=== PATIENT | male | born 1935 | race Caucasian/White ===

== ENCOUNTER → 2025-01-19 13:03 | Outpatient (REF) | payer MEDICARE, SELFPAY | LOC: HWRAD 13:03 | PROVIDERS: ATTENDING PHYSICIAN Family Medicine | DX: H53.8 Other visual disturbances (principal); Z91.81 History of falling; R26.2 Difficulty in walking, not elsewhere classified | CPT/HCPCS: 70450 ==

== ENCOUNTER 2025-04-04 18:33 | Inpatient (IN) | payer MEDICARE, SELFPAY ==
[2025-04-04 12:55] VITALS: BP 141/96
--- NOTE | 2025-04-04 13:49 | ED.GENMED ---
History of Present Illness
<Vijaya Patterson MD, Resident - Last Filed: 04/04/25 15:27>
General
Chief Complaint: Change in Mental Status
Source: spouse and family
Exam Limitations: none
Time Seen by Provider: 04/04/25 13:09
Nursing documentation reviewed up to this point in time: agreed with
History of Present Illness
History of Present Illness:
89yo M with a hx of hypothyroid, PAH, arrhythmia (pacemaker), T2DM, & recently diagnosed vascular dementia who presents from home after days without sleep & with severe psychomotor agitation.
Hx per daughter & at bedside - pt lives at independent living facility with , where he was recently discharged from a stay at acute rehab following a monthlong hospitalization at [facility]. The hospitalization was precipitated by an episode
of syncope and pt appearing in coma-like state. He was declining for years prior with episodes of syncope, autonomic dysfunction/frequent urination/orthostatic hypotension, confusion, dementia, motor weakness. Since the hospitalization, the pt has
had a precipitous decline in mental status. He has been unable to sleep at night, staying up thrashing & screaming. He has become violent, striking staff & his . Family feels that he can no longer be managed at home.
He was started on remeron while at rehab with little to no improvement in sleep. They tried increasing the dose, which did not help. About 1 week ago, pt was seen by a neurologist at [facility] (Dr. Nereyda Juarez), who dx him with vascular dementia. She
prescribed him ativan for sleep. Per family, he has not had improved sleep with ativan but then seems extremely somnolent in the morning the next day. MRI of brain demonstrated diffuse changes consistent with ischemic small vessel dz but without
discrete foci of old infarcts. Neuro workup last week included CBC (WBC not elevated), UA (negative for UTI), vitamin panel (all wnl), TSH (wnl, pt on levothyroxine). Family denies any recent new cough or witness aspiration/choking events. Notice
that he burps a lot after eating.
Past History
<Vijaya Patterson MD, Resident - Last Filed: 04/04/25 15:27>
Past History
ED Past Medical History: NIDDM, Hypothyroidism and Psychiatric (vascular dementia; PAH )
ED Past Surgical History: Orthopedic (C2 fusion)
Patient has exhibited threatening behavior?: No
Social History
Living: assisted living
Review of Systems
<Vijaya Patterson MD, Resident - Last Filed: 04/04/25 15:27>
Review of Systems
Unable to obtain full review of systems at this time due to: dementia
Other source history: family
All Other Systems: ROS reviewed and negative except as documented in HPI and ROS
Constitutional: Reports sleep disturbance
EENT: Reports no symptoms
Respiratory: Reports no symptoms
Cardiac: Reports no symptoms
ABD/GI: Reports no symptoms
: Reports frequency
Musculoskeletal: Reports no symptoms
Skin: Reports no symptoms
Neurological: Reports other (psychosis, no sleep, screaming/psychomotor agitation at night, confusion, syncopal episodes )
Endocrine: Reports no symptoms
Psychiatric: Reports other (dementia )
Phy Exam
<Vijaya Patterson MD, Resident - Last Filed: 04/04/25 15:27>
General Physical Exam
General Presentation: no apparent distress (sleeping )
General age: appears stated age
General Skin: warm and dry
General Habitus: elderly
General Mental: other (somnolent, asleep, not easily roused )
General Hydration: appears well hydrated
Cardiovascular Exam
Cardiovascular Exam: regular rate/rhythm and no edema
Heart Sounds: normal
Pulmonary Exam
Pulmonary Exam: lungs clear and no respiratory distress
Gastrointestinal Exam
Gastrointestinal Exam: non tender, soft and non distended
Neurological Exam
Neurological Exam: other (not easily rousable)
Musculoskeletal Exam
Musculoskeletal Exam: no edema
Skin Exam
Skin Exam: normal color and warm/dry
Course
<Vijaya Patterson MD, Resident - Last Filed: 04/04/25 15:27>
Orders/Labs/Results
Orders:
Orders
04/04/25
Electrocardiogram (*1) Stat
Comment: DONE EMR
04/04/25 13:22
Case Management Consult ONCE
Case Management Consult: VN/Home Care
04/04/25 14:45
Case Management Consult ONCE
Case Management Consult: Hospice
Hospice: Evaluation and treat
04/04/25 15:30
Electrocardiogram (*1) Urgent
Reason for Study: QTc Monitoring
Olanzapine [Zyprexa] 5 mg IM NOW STA
04/04/25 15:43
Ammonia Urgent
Complete Blood Count/With Diff Urgent
Comprehensive Metabolic Panel Urgent
04/04/25 16:07
Add On- LAB Urgent
Tests Added?: magnesium
04/04/25 16:09
Sterile Water [Sterile Water For Injection] 2.1 ml IM NOW STA
Abnormal Lab Results
04/04/25
15:43
WBC 11.4 H 10^3/uL
(4.8-10.8)
RBC 3.79 L 10^6/uL
(4.70-6.10)
Hgb 11.0 L g/dL
(13.0-18.0)
Hct 34.2 L %
(39.0-52.0)
MCHC 32.2 L g/dL
(33.0-37.0)
RDW 14.7 H %
(11.5-14.5)
MPV 11.7 H fL
(7.4-10.4)
Absolute Neuts (auto) 7.9 H 10^3/uL
(1.4-6.5)
Absolute Monos (auto) 1.3 H 10^3/uL
(0.1-0.6)
Lymphocytes % 17.1 L %
(20.5-51.1)
Monocytes % 11.8 H %
(1.7-9.3)
BUN 28 H mg/dl
(9-20)
Glucose 214 H mg/dl
(70-99)
AST 90 H U/L
(17-59)
04/04/25 15:43
04/04/25 15:43
Vital Signs
Initial and Last Documented VS:
Initial Vital Signs
Temp Pulse Resp BP Pulse Ox
36.9 C 104 18 141/96 95
04/04/25 12:55 04/04/25 12:55 04/04/25 12:55 04/04/25 12:55 04/04/25 12:55
Last Documented Vital Signs
Temp Pulse Resp BP Pulse Ox
36.9 C 115 17 141/87 94
04/04/25 12:55 04/04/25 16:55 04/04/25 16:55 04/04/25 16:55 04/04/25 16:55
<Sukhi Prasad, DO - Last Filed: 04/04/25 17:17>
Orders/Labs/Results
Orders:
Orders
04/04/25
Electrocardiogram (*1) Stat
Comment: DONE EMR
04/04/25 13:22
Case Management Consult ONCE
Case Management Consult: VN/Home Care
04/04/25 14:45
Case Management Consult ONCE
Case Management Consult: Hospice
Hospice: Evaluation and treat
04/04/25 15:30
Electrocardiogram (*1) Urgent
Reason for Study: QTc Monitoring
Olanzapine [Zyprexa] 5 mg IM NOW STA
04/04/25 15:43
Ammonia Urgent
Complete Blood Count/With Diff Urgent
Comprehensive Metabolic Panel Urgent
04/04/25 16:07
Add On- LAB Urgent
Tests Added?: magnesium
04/04/25 16:09
Sterile Water [Sterile Water For Injection] 2.1 ml IM NOW STA
Abnormal Lab Results
04/04/25
15:43
WBC 11.4 H 10^3/uL
(4.8-10.8)
RBC 3.79 L 10^6/uL
(4.70-6.10)
Hgb 11.0 L g/dL
(13.0-18.0)
Hct 34.2 L %
(39.0-52.0)
MCHC 32.2 L g/dL
(33.0-37.0)
RDW 14.7 H %
(11.5-14.5)
MPV 11.7 H fL
(7.4-10.4)
Absolute Neuts (auto) 7.9 H 10^3/uL
(1.4-6.5)
Absolute Monos (auto) 1.3 H 10^3/uL
(0.1-0.6)
Lymphocytes % 17.1 L %
(20.5-51.1)
Monocytes % 11.8 H %
(1.7-9.3)
BUN 28 H mg/dl
(9-20)
Glucose 214 H mg/dl
(70-99)
AST 90 H U/L
(17-59)
04/04/25 15:43
04/04/25 15:43
Vital Signs
Initial and Last Documented VS:
Initial Vital Signs
Temp Pulse Resp BP Pulse Ox
36.9 C 104 18 141/96 95
04/04/25 12:55 04/04/25 12:55 04/04/25 12:55 04/04/25 12:55 04/04/25 12:55
Last Documented Vital Signs
Temp Pulse Resp BP Pulse Ox
36.9 C 115 17 141/87 94
04/04/25 12:55 04/04/25 16:55 04/04/25 16:55 04/04/25 16:55 04/04/25 16:55
<Vijaya Patterson MD, Resident - Last Filed: 04/04/25 15:27>
MDM/Problems Addressed
Differential Diagnosis Includes:
Vascular dementia
Lewy body dementia
UTI
Aspiration PNA
B12 deficiency
MDM/Problems Addressed:
- Case mgmt consult
- EKG
<Vijaya Patterson MD, Resident - Last Filed: 04/04/25 15:27>
*Pulse Oximetry
SaO2: 95
Oxygen Mode of Delivery: Room air
<Vijaya Patterson MD, Resident - Last Filed: 04/04/25 15:27>
Update Note
Update Note:
2:30pm
Family met with case mgmt. She provided resources for assisted living facilities with memory care. Family requested naval gunfire liaison officer meeting.
Consult placed for hospice.
3:15pm
Hospice meeting with family.
Will pursue additional workup w labs to eval given family report of liver lesions in pt of unknown etiology, c/f malignancy w unknown primary.
ED Attending Note
<Vijaya Patterson MD, Resident - Last Filed: 04/04/25 15:27>
-
Portions of this chart may have been created with voice recognition software.� Occasional wrong word or��sound alike� substitutions may have occurred due to the inherent limitations of voice recognition software.
<Sukhi Prasad, DO - Last Filed: 04/04/25 17:17>
ED Attending Note
Patient seen and examined by attending physician: Yes
I performed the substantive portion of visit, reviewed & personally made and approve the management plan that is documented in note by myself or CHANA.: Yes
ED Attending Note:
I evaluated the patient at bedside and spoke to daughter who is an oncology pharmacist and . Ultimately family does not feel comfortable with him going home despite him having 24-hour care at home. He has been doing very poorly especially at
nighttime acting out and they cannot safely manage him. We had care management evaluate the situation and they are unable to place him. Yelena from care management recommends admitting patient here with psychiatric consultation. Yelena also reached
out to hospice.
Discharge Plan
Departure
Patient Disposition: Admit
Date of Disposition: 04/04/25
Time of Disposition: 17:15
Presentation/result/management discussed w/ accepting MD/DO: Hospitalist
Discharge Problem:
Dementia
Prescriptions:
No Action
levothyroxine 25 mcg tablet
25 mcg PO DAILY@0600
famotidine 20 mg Tablet
20 mg PO DAILYPRN PRN (Reason: gerd)
mirtazapine 15 mg tablet
7.5 mg PO HS
lorazepam 2 mg/mL concentrate
0.5 mg PO HSPRN PRN (Reason: insomnia)
insulin lispro [Humalog KwikPen Insulin] 100 unit/mL insulin pen
0 - 8 unit SC AC
insulin glargine [Lantus Solostar U-100 Insulin] 100 unit/mL (3 mL) insulin pen
20 unit SC DAILY
melatonin 5 mg Tablet
5 mg PO HS
Eliquis 2.5 mg tablet
2.5 mg PO BID
Referrals:
Nai Keen MD [Family Provider, Family Practice]
Interventions
Interventions:
*Risk Screen - Suicide Last Done: 04/04/25 12:55
*General Assessment Last Done: 04/04/25 12:55
*Neglect/Abuse Screening Last Done: 04/04/25 12:55
*ED COVID-19 Vaccine History Last Done: 04/04/25 12:55
*ED Influenza Vaccine History Last Done: 04/04/25 12:55
[facility] Fall Risk Assessment Tool Last Done: 04/04/25 12:53
ED- Neurological Assessment Last Done: 04/04/25 13:08
Discharge Date and Time
Print Language: EQUATORIAL GUINEAN
--- NOTE | 2025-04-04 14:25 | EDCM ---
Received consult, reviewed chart and met with pt's and daughter bedside in ED. Pt and his recently moved to [facility], they still have their place in [place]. Pt has dementia, has become increasingly agitated, gets up several times a
night and is a fall risk. Yells and attempts to strike staff. Per daughter, they have had 24 hour nursing care since pt was discharged from rehab 3 weeks ago. Pt has been admitted to [facility] then went to [facility].
Daughter [place] is interested in Memory Care Unit but may be interested in a facility where her mother could also live in Assisted Living. They did work with [facility] but felt overwhelmed with the amount of calls they got from facilities.
They have also been speaking to someone else but not sure where he is from.
I gave the our list of Assisted Living facilities in the area, the ones that have memory care are [facility].
Daughter also mentioned possibly considering hospice, pt's sister worked in hospice and has encouraged it. I reached out to [facility], she will try to meet with them today.
--- NOTE | 2025-04-04 15:37 | HOSPNOTE ---
Spoke with daughter and discussed hospice and the philosophy. The plan is to admit patient and make decisions about placement. Patient may meet inpatient criteria for hospice if this agitation is not controlled. The plan is for me to follow up
tomorrow. More information to come.
[2025-04-04 16:10] LABS: Hematocrit 34.2 % (39.0-52.0); Hemoglobin 11.0 g/dL (13.0-18.0); Mean Corp Hgb Conc. 32.2 g/dL (33.0-37.0); Mean Corpuscular Volume 90.2 fL (80.0-94.0); Nucleated Red Blood Cells % 0 % (-); Platelet Count 167 10^3/uL (130-400); Red Cell Dist. Width 14.7 % (11.5-14.5)
[2025-04-04] MEDS: ZYPREXA 5 MG IM ×2 (16:12→18:11)
[2025-04-04] MEDS: STERILE WATER FOR INJECTION 2.1 ML IM ×2 (16:12→18:12)
[2025-04-04 16:19] LABS: Ammonia 9 umol/L (9-30)
[2025-04-04 16:29] LABS: ALT (SGPT) 31 U/L (0-50); AST (SGOT) 90 U/L (17-59); Albumin 3.9 g/dl (3.5-5.0); Alkaline Phosphatase 90 U/L (38-126); Blood Urea Nitrogen 28 mg/dl (9-20); Calcium 9.3 mg/dl (8.4-10.2); Carbon Dioxide 30 mmol/L (22-30); Chloride 103 mmol/L (98-107); Glucose 214 mg/dl (70-99); Potassium 4.9 mmol/L (3.5-5.1); Sodium 139 mmol/L (135-145); Total Protein 7.2 g/dl (6.3-8.2); eGFR 52.84
[2025-04-04 16:55] VITALS: BP 141/87
--- NOTE | 2025-04-04 17:17 | HPS.HSE ---
Addendum entered and electronically signed by Faustino Garrison MD 04/04/25 18:59:
This is an addendum to H&P written by Audra Aguirre on 04/04/2025. �Patient seen and examined independently with ENVIRONMENTAL SCIENCE TECHNICIAN.
89-year-old male past medical history of diabetes, hypothyroidism, atrial fibrillation on Eliquis, vascular dementia, GERD, presenting with increased agitation and confusion.
Patient came from independent living and unable to sleep for 3 weeks. �Becoming aggressive at independent living.
Vitals show slight tachycardia.
Labs show slight tachycardia.
Patient with worsening vascular dementia with agitation. �Family agreeable for patient to pursue hospice. �They would not like us to pursue infectious workup with urinalysis at this time. �Case management consulted for hospice.
Original Note:
Family Physician
-
Family Physician: Nai Keen MD
Chief Complaint
-
increased agitation and confusion
History of Present Illness
Patient is a 89-year-old male with past medical history significant for atrial fibrillation, IDDM, hypothyroidism, vascular dementia and GERD who presented to [facility] ED for evaluation of increased agitation and confusion. Patient resides at
independent living facility with . Approximately 3 weeks ago he returned to independent living after extended hospitalization and rehab stay. Patient daughter at bedside to supply information as patient is poor historian with vascular dementia.
She describes patient with significant decline since returning to independent living 3 weeks ago, he has not slept much and has become aggressive towards staff and his . She states he finally was able to see neurology last week and lorazepam was
added and not helpful. She also reports extensive workup out patient did not indicate any infectious process and she does not believe further workup here is needed and that goals should be comfort going forward. Patient and family did have
discussion with hospice team and would like to pursue placement with hospice in place.
Medical History
Past Medical History
Past Medical History: Reports Other
Additional Past Medical History:
atrial fibrillation
IDDM
hypothyroidism
vascular dementia
GERD
Past Surgical History: Reports Other
Additional Past Surgical History:
pacemaker placement
cataract extraction
C5 neck surgery
Social History
Tobacco: Non-smoker
Alcohol: None
Personal:
Living: With Family (independent living )
Family History
Family History: Not pertinent
Allergies / Home Medications
Allergies reflects when Allergies were last updated in [facility].
Home Medications with original date entered in [facility]
Allergy/Medication List:
Allergies
Allergy/AdvReac Type Severity Reaction Status Date / Time
No Known Allergies Allergy Unverified 04/04/25 15:36
Home Medications
apixaban 2.5 mg tablet (Eliquis) 2.5 mg PO BID Blood Clot Prevention/Tx 04/04/25
famotidine 20 mg tablet 20 mg PO DAILYPRN PRN gerd 04/04/25
insulin glargine 100 unit/mL (3 mL) subcutaneous pen (Lantus Solostar U-100 Insulin) 20 unit SC DAILY Diabetes 04/04/25
insulin lispro 100 unit/mL subcutaneous pen (Humalog KwikPen (U-100) Insulin) 0 - 8 unit SC AC 04/04/25
levothyroxine 25 mcg tablet 25 mcg PO DAILY@0600 04/04/25
lorazepam 2 mg/mL oral concentrate 0.5 mg PO HSPRN PRN insomnia 04/04/25
melatonin 5 mg tablet 5 mg PO HS 04/04/25
mirtazapine 15 mg tablet 7.5 mg PO HS 04/04/25
Review of Systems
-
Unable to obtain full review of systems at this time due to: Dementia
Physical Exam
Vital Signs
Vital Signs
Temp Pulse Resp BP Pulse Ox
98.4 F 115 17 141/87 94
04/04/25 12:55 04/04/25 16:55 04/04/25 16:55 04/04/25 16:55 04/04/25 16:55
Physical Exam
General: Well Developed, Well Nourished and No Apparent Distress
HEENT: NormoCephalic, PERRLA, Nose Appears Normal and Ears Appear Normal
Respiratory: Clear and Non Labored Respirations; No Wheezes, Rales or Rhonchi
Cardiac: Regular Rhythm; No Murmur, Rub, Gallop or Peripheral Edema
GI: Soft, Non Tender, Non Distended and Normal Bowel Sounds
Musculoskeletal: No Clubbing and No Cyanosis
Skin: Warm and IV/Catheter Site
Neuro: Awake
Psych: Agitated and Apparent Dementia
Laboratory Results
-
04/04/25 15:43
04/04/25 15:43
Laboratory Results
Total Bilirubin 1.3 mg/dl (0.2-1.3) 04/04/25 15:43
AST 90 U/L (17-59) H 04/04/25 15:43
ALT 31 U/L (0-50) 04/04/25 15:43
Alkaline Phosphatase 90 U/L (38-126) 04/04/25 15:43
Data Reviewed
-
Lab Data: Labs Reviewed by me (WBC 11.4, hgb 11.0, hct 34.2, BUN 28, creat 1.3, eGFR 52.84)
Impression/Plan
-
IMPRESSION/PLAN:
#increased confusion and increased agitation likely 2/2 vascular dementia advancement
#vascular dementia
patient with increased agitation and confusion over past 3 weeks, no longer recognizes family, out patient workup unremarkable for infectious process
WBC 11.4, hgb 11.0, hct 34.2, BUN 28, creat 1.3, eGFR 52.84
EKG: SINUS TACHYCARDIA
NON-SPECIFIC INTRA-VENTRICULAR CONDUCTION BLOCK
POSSIBLE LATERAL INFARCT , AGE UNDETERMINED
- Admit to med/surg for comfort care
- Consult Hospice
- Consult case management
- goal for patient to have placement for hospice care where appropriate
- continue lorazepam, melatonin and mirtazapine
#atrial fibrillation
discussion with family and would like to stop Eliquis r/t risks
#IDDM
family wishes to continue to treat sugars for comfort measures
- AccuCheck AC & HS
- SSI
- continue insulin glargine
#hypothyroidism
- continue levothyroxine
#GERD
- continue famotidine
Code status: DNR
DVT prophylaxis: N/A
[2025-04-04 19:27] VITALS: BP 142/87; BMI 24.4
[2025-04-04] MEDS: MORPHINE SULFATE 2 MG IV (19:46)
--- NOTE | 2025-04-04 20:30 | PTCARENOTE ---
Pt arrived to [address] from ED. Pt restless, agitated and constantly trying to get out of bed. AAOx0, garbled speech, not able to communicate needs or follow directions. Pt is unable to take PO meds at this time. Juan French notified of pt status. 1x dose
of IV ativan was given to pt. See MAR. Will continue to monitor pt.
[2025-04-04] MEDS: NSS (PRESERVATIVE FREE) 0.25 ML IV (20:46)
[2025-04-04] MEDS: ATIVAN 0.5 MG IV (20:46)
[2025-04-04 23:30] VITALS: BP 120/71
[2025-04-05 07:41] LABS: Magnesium 2.0 mg/dl (1.6-2.3)
[2025-04-05 07:47] VITALS: BP 121/93
[2025-04-05 08:08] LABS: Glucose - Point of Care 98 mg/dl (70-99)
--- NOTE | 2025-04-05 08:15 | PTCARENOTE ---
patient's AccuCheck 98. notified Dr. Tellez via tiger text and she wants to hold off on Lantus insulin if less than 200. she will address insulin order when she is able, will continue to monitor.
--- NOTE | 2025-04-05 09:00 | PTCARENOTE ---
patient able to take 2 bites of oatmeal, otherwise not taking in anything orally
[2025-04-05] MEDS: NSS (PRESERVATIVE FREE) 0.25 ML IV (10:01)
[2025-04-05] MEDS: ATIVAN 0.5 MG IV (10:01)
--- NOTE | 2025-04-05 10:01 | PTCARENOTE ---
at 1001, patient anxious, restless, agitated, trying to transfer oob by self. administered PRN Ativan, will continue to monitor.
--- NOTE | 2025-04-05 10:53 | PTCARENOTE ---
at 1030, patient anxious, agitated and restless since Ativan. went in to administer Morphine to patient and IV site leaking. IV team called to come place new IV access. at 10:53, IV team still not here to restart patient. Morphine wasted. Once IV
team restarts patient,will reevaluate pateint to see if he still needs Morphine, will continue to monitor.
--- NOTE | 2025-04-05 11:45 | PTCARENOTE ---
IV team placed new IV access. patient sleeping and responds to verbal/tactile stimuli, otherwise appears comfortable, will continue to monitor.
[2025-04-05 12:10] LABS: Glucose - Point of Care 96 mg/dl (70-99)
--- NOTE | 2025-04-05 13:21 | HOSPNOTE ---
The patient will be admitted inpatient hospice today. Consents are signed and admissions called. Attending aware of plan and in agreement.
--- NOTE | 2025-04-05 13:29 | CM ---
Referral sent to hospice for evaluation.
Plan for admission to inpatient hospice at today.
Anticipate patient will be transferred to [address] [place] [address].
[2025-04-05 15:14] VITALS: BP 169/75
--- NOTE | 2025-04-05 15:18 | PTCARENOTE ---
patient to be admitted to inpatient hospice, will continue to monitor.
== END 2025-04-05 16:19 | disposition hospice, inpatient (51) | DRG 884 ==
LOC: 3 WEST ACU 18:33
PROVIDERS: ADMITTING PHYSICIAN Hospitalist; ATTENDING PHYSICIAN Internal Medicine; EMERGENCY PHYSICIAN Emergency Medicine; FAMILY PHYSICIAN Family Medicine
DX: F01.511 Vascular dementia, unspecified severity, with agitation (principal); Z79.01 Long term (current) use of anticoagulants; K21.9 Gastro-esophageal reflux disease without esophagitis; Z66 Do not resuscitate; Z79.4 Long term (current) use of insulin; Z51.5 Encounter for palliative care
CPT/HCPCS: 80053; 82140; 82962; 83735; 85025; 93005; 96372; 99285; J2358

== ENCOUNTER 2025-04-05 16:21 | Inpatient (IN) | payer OTHER, SELFPAY ==
--- NOTE | 2025-04-05 13:30 | HPS.HSE ---
Family Physician
-
Family Physician: INTERVIEWE UNKNOWN - PT NOT
Chief Complaint
-
Agitation
History of Present Illness
89M with vascular dementia p/w terminal agitation. He has vascular dementia, and in the last few weeks he has had significant decline, inability to perform his ADLs, not sleeping well, change in behavior such as aggressiveness. Patient has since
stopped eating, has decreased responsiveness and increased agitation. His family has elected to pursue comfort measures and inpatient hospice.
Medical History
Past Medical History
Past Medical History: Reports Other
Additional Past Medical History:
atrial fibrillation
IDDM
hypothyroidism
vascular dementia
GERD
Past Surgical History: Reports Other
Additional Past Surgical History:
pacemaker placement
cataract extraction
C5 neck surgery
Social History
Tobacco: Non-smoker
Alcohol: None
Personal:
Living: With Family (independent living )
Family History
Family History: Not pertinent
Allergies / Home Medications
Allergies reflects when Allergies were last updated in [facility]
Home Medications with original date entered in [facility]
Allergy/Medication List:
Allergies
Allergy/AdvReac Type Severity Reaction Status Date / Time
No Known Allergies Allergy Unverified 04/04/25 15:36
Home Medications
apixaban 2.5 mg tablet (Eliquis) 2.5 mg PO BID Blood Clot Prevention/Tx 04/04/25
famotidine 20 mg tablet 20 mg PO DAILYPRN PRN gerd 04/04/25
insulin glargine 100 unit/mL (3 mL) subcutaneous pen (Lantus Solostar U-100 Insulin) 20 unit SC DAILY Diabetes 04/04/25
insulin lispro 100 unit/mL subcutaneous pen (Humalog KwikPen (U-100) Insulin) 0 - 8 unit SC AC 04/04/25
levothyroxine 25 mcg tablet 25 mcg PO DAILY@0600 04/04/25
lorazepam 2 mg/mL oral concentrate 0.5 mg PO HSPRN PRN insomnia 04/04/25
melatonin 5 mg tablet 5 mg PO HS 04/04/25
mirtazapine 15 mg tablet 7.5 mg PO HS 04/04/25
Review of Systems
-
Unable to obtain full review of systems at this time due to: Dementia
History Source: Patient
Physical Exam
Physical Exam
General: Appears in Distress and Appears Chronically Ill
HEENT: No Moist mucous membranes
Respiratory: Clear; No Wheezes or Rales
Cardiac: S1/S2 and Regular Rhythm; No Murmur
GI: Soft, Non Tender, Non Distended and Normal Bowel Sounds
Musculoskeletal: No Edema
Skin: Warm and Dry
Neuro: Awake; No Alert or Oriented
Psych: Agitated and Apparent Dementia
Impression/Plan
-
PLAN:
Hospice admission
Comfort measures
IV Morphine prn and drip if needed for pain
Ativan prn anxiety
Haldol prn agitation
DNR
[2025-04-05] MEDS: HALDOL 1 MG IV (17:12)
--- NOTE | 2025-04-05 17:16 | PTCARENOTE ---
patient being admitted to inpatient hospice. patient medicated with PRN Haldol for CPOT score 4. appears agitated, restless, anxious, unable to use pain scale, will continue to monitor.
--- NOTE | 2025-04-05 18:15 | PTCARENOTE ---
telephone report given to Ravi and patient transferred to room 2140 with belongings.
[2025-04-05 19:05] VITALS: BP 149/73
[2025-04-05] MEDS: MORPHINE SULFATE 2 MG IV (19:17)
[2025-04-05] MEDS: VALIUM INJECTION 2 MG IV (19:30)
[2025-04-05] MEDS: HALDOL 2 MG IM (21:11)
[2025-04-05] MEDS: MORPHINE 100 IV (21:35)
--- NOTE | 2025-04-05 22:28 | HOSPNOTE ---
Patient admitted to inpatient hospice, hospice will visit daily.
--- NOTE | 2025-04-05 23:35 | PTCARENOTE ---
Patient received at change of shift from [facility] to be moved from inpatient to comfort measures/end of life care. Upon initial assessment, pt. was found to be severely confused, restless, unable to make needs known, and attempting to continuously get
OOB and/or remove gown and IV lines. At this time patient was deemed unsafe to be alone in room as patient was a high fall risk, confused, and not redirectable. This nurse and 2 chelsea PCT took turns sitting at patients bedside in order to provide
1:1 monitoring for patient safety. It Compliance Manager notified of need for 1:1, pt. was to have nursing technician as 1:1 for remainder of shift starting at 2300. Pt. restless, confused, and agitated at times. PRN meds given per protocol. Per orders PRN morphine was
DCed and morphine gtt was started. At approx 2300, pt. was found to be unresponsive in bed. Upon assessment, pt. was found to be . Provider at bedside to pronounce pt.
--- NOTE | 2025-04-06 01:45 | W.PN.DEATH ---
Pronouncement of
-
Called to see patient to pronounce.
No spontaneous heart tones or respirations noted.
Patient not responsive to verbal stimuli.
Patient is pronounced .
Time of : 23:04
Date of : 04/05/25
Cause of : failure to thrive, terminal agitation, vascular dementia
Family Notified: Yes (, daughter and son-in-law came in)
== END 2025-04-05 23:04 | disposition expired | DRG 951 ==
LOC: 2 NORTH 16:21
PROVIDERS: ADMITTING PHYSICIAN Internal Medicine
DX: Z51.5 Encounter for palliative care (principal); F01.511 Vascular dementia, unspecified severity, with agitation; R62.7 Adult failure to thrive; Z66 Do not resuscitate